=== PATIENT | male | born 1995 | race Two or more races ===

== ENCOUNTER 2023-12-24 04:03 | Emergency (ER) | payer OTHER ==
[~2023-12-24] VITALS: Ht 167.6 cm; Wt 90.7 kg
[2023-12-24] MEDS ORDERED: ORPHENADRINE CITRATE 30 MG/ML AMPUL IM ONE (04:45)
[2023-12-24] MEDS ORDERED: KETOROLAC TROMETHAMINE 60 MG VIAL IM ONE (04:45)
[2023-12-24] MEDS ORDERED: DICLOFENAC SODI75 MG PO (05:56)
[2023-12-24] MEDS ORDERED: NORFLEX100MG PO (05:56)
== END 2023-12-24 05:58 | disposition home or self-care (01) ==
LOC: ER 04:03
DX: S13.4XXA Sprain of ligaments of cervical spine, initial encounter (principal); V49.88XA Car occupant (driver) (passenger) injured in other specified transport accidents, initial encounter; V89.2XXA Person injured in unspecified motor-vehicle accident, traffic, initial encounter; Y93.89 Activity, other specified; Y92.89 Other specified places as the place of occurrence of the external cause; Y99.8 Other external cause status